=== PATIENT | female | born 1970 | race American Indian/Alaskan Native ===

== ENCOUNTER 2017-09-07 06:00 | Day surgery (SDC) | payer BC ==
[2017-09-07] MEDS ORDERED: WATER FOR IRRIG STERILE IR ONE (07:22)
--- NOTE | 2017-09-07 07:26 | Anesthesia Consultation ---
Anesthesia Consult and Med Hx Date of service: 09/07/17 - Airway Anesthetic Teeth Evaluation: Good ROM Head & Neck: Adequate Mental/Hyoid Distance: Adequate Mallampati Class: Class I Intubation Access Assessment: Good - Pulmonary Exam CTA: Yes - Cardiac Exam Cardiac Exam: RRR - Pre-Operative Health Status ASA Pre-Surgery Classification: ASA3 Proposed Anesthetic Plan: MAC - Pulmonary Hx Sleep Apnea: Yes (mild, had sleep study done) - Cardiovascular System Hx Hypertension: Yes - Gastrointestinal Hx Gastroesophageal Reflux Disease: Yes (when indulges) - Other Systems Hx Obesity: Yes
--- NOTE | 2017-09-07 07:26 | Anesthesia Day of Surgery ---
Anesthesia Day of Surgery - Day of Surgery Patient Examined: Yes Patient H&P Reviewed: Yes Patient is NPO: Yes
[2017-09-07] MEDS ORDERED: DIPRIVAN 10 MG/ML IV ONE ×2 (07:33)
[2017-09-07] MEDS ORDERED: NACL 0.9% 1000 ML 1,000 ML ONE (07:37)
--- NOTE | 2017-09-07 07:54 | Discharge Summary ---
Providers - Providers Attending physician: DANIEL CAMARILLO Primary care physician: CHRISTINE ZELAYA Hospitalization Hospital course: 47 y.o. F presented for EGD for upcoming bariatric surgery. She tolerated the procedure well. Disposition: - TO HOME OR SELFCARE Core Measure Documentation - Palliative Care Palliative Care/ Comfort Measures: Not Applicable - Core Measures Any of the following diagnoses?: none Exam - Physical Exam Narrative exam: no change from prior - Constitutional Vitals: Temp Pulse Resp BP Pulse Ox 97.5 F L 85 18 138/71 100 09/07/17 07:29 09/07/17 07:29 09/07/17 07:29 09/07/17 07:29 09/07/17 07:29 Plan Diet: other (high protein then clears 2 day prior to surgery) Follow up with: CHRISTINE ZELAYA MD [Primary Care Provider] - 7 Days
--- NOTE | 2017-09-07 07:58 | Operative Report ---
Operative Report Operative Report: DATE 09/07/17 SURGERY: Upper endoscopy. SURGEON: Juan Chopra M.D. [employer] ADVISOR: Fariha Nicolas PRE OP DX: morbid obesity POST OP DX: Large hiatal hernia TYPE OF ANESTHESIA: MAC. ESTIMATED BLOOD LOSS: None. COMPLICATIONS: None. SPECIMENS REMOVED: None. FINDINGS: 1. moderate to large hiatal hernia INDICATIONS:INDICATION FOR PROCEDURE: Patient is a 47-year-old female with a long history of morbid obesity. She is here today for egd for evaluation of her stomach prior to sleeve gastrectomy. PROCEDURE DETAILS: After consent was reviewed, patient was taken back to the operating room where patient was placed in the left lateral decubitus position and a bite block was placed in the mouth. After a time-out was called, MAC anesthesia was initiated. I then passed the endoscope into her oropharynx, into her esophagus, visualized the entire esophagus, which was all within normal limits. I then visualized the stomach and the first portion of the duodenum and there were no abnormalities I could clearly visualize. I then retroflexed the scope in the stomach and visualized the hiatus and I could see a moderate to large hiatal hernia. I then desufflated the stomach and removed the endoscope. Patient tolerated procedure well and was transferred to recovery room in good and stable condition.
[2017-09-07 08:26] VITALS: BP 138/85
--- NOTE | 2017-09-07 08:30 | Post Anesthesia Evaluation ---
- Post Anesthesia Evaluation Patient Participated: Yes Airway Patent: Yes Stable Respiratory Function: Yes Nausea/Vomiting: No Temp > 96.8F: Yes Pain Manageable: Yes Adequeate Hydration: Yes Anesthesia Complications: No Block Receding Appropriately: Not Applicable Patient on Ventilator: No
== END 2017-09-07 06:01 | disposition home or self-care (01) ==
LOC: GIO 06:00
PROVIDERS: ATTEND Surgery
DX: K44.9 Diaphragmatic hernia without obstruction or gangrene (principal); K21.9 Gastro-esophageal reflux disease without esophagitis; E66.01 Morbid (severe) obesity due to excess calories; E78.00 Pure hypercholesterolemia, unspecified; I10 Essential (primary) hypertension; G47.33 Obstructive sleep apnea (adult) (pediatric); Z98.51 Tubal ligation status; Z98.890 Other specified postprocedural states; Z79.899 Other long term (current) drug therapy; Z68.42 Body mass index [BMI] 45.0-49.9, adult
CPT/HCPCS: 43235; 81025; J2704; J7030

== ENCOUNTER 2017-09-10 06:52 | Inpatient (IN) | payer BC ==
[2017-09-10] MEDS ORDERED: MYLICON PO PRN (07:52)
[2017-09-10] MEDS ORDERED: ANCEF/NS 1 GM/50 ML 1 GM/50 ML BAG IV SCH (08:00)
[2017-09-10] MEDS ORDERED: ANCEF/STERILE WATER 2 GM/20 ML 2 GM/20 ML SYRINGE IV NR (08:00)
[2017-09-10] MEDS ORDERED: FLAGYL 500 MG/100 ML 500 MG/100 ML BAG IV NR (08:00)
[2017-09-10] MEDS ORDERED: LOVENOX SUB-Q NR (08:00)
[2017-09-10] MEDS ORDERED: MORPHINE IV PRN ×2 (08:30→10:13)
[2017-09-10] MEDS ORDERED: ZOFRAN IV PRN (08:30)
[2017-09-10] MEDS ORDERED: APRESOLINE IV PRN (08:30)
[2017-09-10] MEDS ORDERED: TRANSDERM-SCOP TD SCH (08:30)
[2017-09-10] MEDS ORDERED: NORCO PO PRN (08:30)
[2017-09-10] MEDS ORDERED: DILAUDID IV PRN (08:30)
--- NOTE | 2017-09-10 08:41 | Anesthesia Consultation ---
Anesthesia Consult and Med Hx Date of service: 09/10/17 - Airway Anesthetic Teeth Evaluation: Good ROM Head & Neck: Adequate Mental/Hyoid Distance: Adequate Mallampati Class: Class II Intubation Access Assessment: Probably Good - Pulmonary Exam CTA: Yes - Cardiac Exam Cardiac Exam: RRR - Pre-Operative Health Status ASA Pre-Surgery Classification: ASA3 Proposed Anesthetic Plan: General - Pulmonary Hx Sleep Apnea: Yes (Mild) - Cardiovascular System Hx Hypertension: Yes (dx in her 20's) - Central Nervous System Hx Psychiatric Problems: No - Gastrointestinal Hx Gastroesophageal Reflux Disease: Yes (when indulges) - Endocrine Hx Non-Insulin Dependent Diabetes: Yes (pre diabetic, no meds) - Other Systems Hx Alcohol Use: No Hx Substance Use: No Hx Cancer: No Hx Obesity: Yes
--- NOTE | 2017-09-10 08:42 | Anesthesia Day of Surgery ---
Anesthesia Day of Surgery - Day of Surgery Patient Examined: Yes Patient H&P Reviewed: Yes Patient is NPO: Yes
[2017-09-10] MEDS ORDERED: REGLAN IV PRN (09:00)
[2017-09-10] MEDS ORDERED: PEPCID IV NR (09:32)
[2017-09-10] MEDS: LACTATED RINGERS 1,000 ML IV SCH ×2 (09:40→19:35)
[2017-09-10 09:52] LABS: Bilirubin,Urine NEG (Negative); Blood,Urine NEG (Negative); Ketones,Urine TR mg/dL (Negative); Leukocyte Esterase,Urine NEG (Negative); Mucus,Urine FEW /HPF; Nitrite,Urine NEG (Negative); Protein,Urine <15 mg/dL mg/dL (Negative); RBC,Urine < 1.0 /HPF (0.0-6.0); Urobilinogen,Urine < 2.0 mg/dL (<2.0)
[2017-09-10] MEDS ORDERED: VERSED IV NR (10:00)
[2017-09-10] MEDS ORDERED: NON-FORMULARY (Metoprolol 50 MG) PO SCH (10:00)
[2017-09-10] MEDS ORDERED: ATORVASTATIN PO SCH (10:00)
[2017-09-10 10:02] LABS: Basophils % (Auto) 0.4 % (0.0-1.8); Hematocrit 40.5 % (30.3-42.9); Hemoglobin 13.6 gm/dl (10.1-14.3); Mean Corpuscular HGB Conc 34 % (30-34); Mean Corpuscular Hemoglobin 31 pg (28-32); Mean Corpuscular Volume 92 fl (79-97); Platelet Count 285 K/mm3 (140-440); Red Blood Count 4.41 M/mm3 (3.65-5.03); Red Cell Distribution Width 14.3 % (13.2-15.2); White Blood Count 6.4 K/mm3 (4.5-11.0)
[2017-09-10] MEDS ORDERED: DIPRIVAN 10 MG/ML IV ONE (10:12)
[2017-09-10 10:14] LABS: Anion Gap 19 mmol/L; BUN/Creatinine Ratio 13; Blood Urea Nitrogen 8 mg/dL (7-17); Calcium 9.5 mg/dL (8.4-10.2); Carbon Dioxide 26 mmol/L (22-30); Chloride 100.8 mmol/L (98-107); Glucose 104 mg/dL (65-100); Potassium 3.8 mmol/L (3.6-5.0); Sodium 142 mmol/L (137-145)
[2017-09-10] MEDS ORDERED: SUBLIMAZE ONE (10:34)
[2017-09-10] MEDS ORDERED: QUELICIN ONE (10:36)
[2017-09-10] MEDS ORDERED: ZEMURON IV ONE (10:36)
[2017-09-10] MEDS ORDERED: XYLOCAINE MPF 2% ONE (10:37)
[2017-09-10] MEDS ORDERED: MARCAINE 0.5% 30 ML INFILTRATI ONE (10:42)
[2017-09-10] MEDS ORDERED: ADRENALIN ONE (10:42)
[2017-09-10] MEDS ORDERED: XYLOCAINE 1% 20 mL ONE (10:42)
[2017-09-10] MEDS ORDERED: ePHEDrine SULFATE ONE (11:36)
[2017-09-10] MEDS ORDERED: XYLOCAINE 1% 20 mL INFILTRATI ONE (11:54)
[2017-09-10] MEDS ORDERED: NACL 0.9% IR ONE (11:55)
[2017-09-10] MEDS ORDERED: MARCAINE 0.5% INFILTRATI ONE (11:55)
[2017-09-10] MEDS ORDERED: ADRENALIN IV ONE (11:56)
[2017-09-10] MEDS ORDERED: NEO SYNEPHRINE/NS Syringe(OR USE) IV ONE (12:09)
[2017-09-10] MEDS ORDERED: LACTATED RINGERS 1,000 ML ONE (12:21)
[2017-09-10] MEDS ORDERED: ROBINUL ONE (12:33)
[2017-09-10] MEDS ORDERED: DILAUDID ONE (12:42)
[2017-09-10] MEDS: LOVENOX SUB-Q SCH (13:00)
[2017-09-10] MEDS ORDERED: NEOSTIGMINE ONE (13:04)
--- NOTE | 2017-09-10 13:09 | Operative Report ---
Operative Report Operative Report: Operative Report DATE OF PROCEDURE: 09/10/17 PREOPERATIVE DIAGNOSES: Morbid obesity, hiatal hernia POSTOPERATIVE DIAGNOSES: 1.same as pre-op SURGEON: Juan Chopra M.D. RN ACCESS: Alexandru Levy CSA PROCEDURE: 1. laparoscopic sleeve gastrectomy 2. laparoscopic hiatal hernia repair ANESTHESIA: General. ESTIMATED BLOOD LOSS: <5 mL. COMPLICATIONS: None. SPECIMEN: Partial gastrectomy. FINDINGS: 1. hiatal hernia INDICATION FOR PROCEDURE: Patient is a 47-year-old female with a long history of morbid obesity. She has tried multiple efforts at weight loss without exterminator success. She is here today for sleeve gastrectomy. PROCEDURE IN DETAIL: After consent was reviewed, patient was taken back to the operating room, where patient was placed supine on the bed with both arms out. The patient's legs were doubly strapped to the bed. Patient had a foot board in place. Patient had a body warmer placed by anesthesia. Patient was then prepped and draped in normal sterile surgical fashion. After a time-out was called, I made a stab incision in the left subcostal region and placed a Veress needle through this incision and insufflated the abdomen to 18 mmHg pressure. I then counted down a handsbreadth below the xiphoid process in the midline and slightly left lateral injected local anesthetic and made about 0.5 cm transverse incision. I then used a 5-mm Optiview trocar to enter into the abdomen. I then placed a 45-degree scope through this port and inspected the abdomen. There was no injury on entry of the abdomen. I then placed 5-mm ports in the right upper quadrant, left upper quadrant, and 1 subxiphoid below the costovertebral angle. I then placed a 15-mm port about a handsbreadth left lateral and inferior to my right upper quadrant port. I then placed the liver retractor through the subxiphoid port and placed the patient in full reverse Trendelenburg. The right and left crura were skeletonized accentuating a small hiatal hernia. An anterior cruraplasty was perfromed with a figure-of-8 stitch using surgidac suture to reapproximate the crura.The GE junction was noted to be above the level of the diaphragmatic hiatus, and after full dissection the stomach and 2cm of distal esophagus were resting comfortable in the abdominal cavity without tension. I then identified the pylorus and then counted off 6cm from the pylorus. I then used a LigaSure cutting device to enter into the lesser sac. At that point and then I took down the short gastrics all the way up to the left scooby. Then I had anesthesia pass down a 36-Chinese bougie along the lesser curvature of the stomach. I made sure everything else was out of the abdomen except the bougie. I then created my gastric sleeve using a 60-mm laparoscopic stapler. Green, then gold, followed by blue loads. The sleeve looked good without any twisting or torsion. I then had anesthesia to remove the bougie. Hemostasis was obtained along the staple line. I then used Tiseel along the entirety of the staple line and some on the liver. I then removed liver grasper and took it off the field. I then removed the stomach through the 15-mm port. I then closed that fascia with a #1 PDS in a [id number] fashion using a Bryan-Annia. I then desufflated the abdomen and then removed all port sites. I then closed the incisions with 4-0 Monocryl in subcuticular fashion. I dressed the wounds with Dermabond. Patient tolerated the procedure well and was transferred to recovery room in good and stable condition.
--- NOTE | 2017-09-10 14:07 | Post Anesthesia Evaluation ---
- Post Anesthesia Evaluation Patient Participated: Yes Airway Patent: Yes Stable Respiratory Function: Yes Temp > 96.8F: Yes Pain Manageable: Yes Adequeate Hydration: Yes Anesthesia Complications: No
[2017-09-10] MEDS: FLAGYL 500 MG/100 ML 500 MG/100 ML BAG IV SCH ×2 (15:06→23:03)
[2017-09-10] MEDS: TORADOL IV SCH ×2 (18:28→22:46)
[2017-09-10] MEDS: ceFAZolin 1 GM in NACL 0.9% 20 ML IV SCH (19:34)
[2017-09-10] MEDS: LOPRESSOR PO SCH (23:10)
[2017-09-11] MEDS: TORADOL IV SCH ×3 (01:44→10:16)
[2017-09-11] MEDS: ceFAZolin 1 GM in NACL 0.9% 20 ML IV SCH (01:45)
[2017-09-11 02:08] LABS: Alanine Aminotransferase 75 units/L (7-56); Albumin 4.1 g/dL (3.9-5); Albumin/Globulin Ratio 1.6 %; Alkaline Phosphatase 41 units/L (35-129); BUN/Creatinine Ratio 12; Basophils % (Auto) 0.3 % (0.0-1.8); Blood Urea Nitrogen 6 mg/dL (7-17); Carbon Dioxide 26 mmol/L (22-30); Eosinophils % (Auto) 0.1 % (0.0-4.3); Glucose 112 mg/dL (65-100); Hematocrit 35.6 % (30.3-42.9); Hemoglobin 12.2 gm/dl (10.1-14.3); Mean Corpuscular HGB Conc 34 % (30-34); Mean Corpuscular Hemoglobin 32 pg (28-32); Mean Corpuscular Volume 93 fl (79-97); Platelet Count 258 K/mm3 (140-440); Red Blood Count 3.84 M/mm3 (3.65-5.03); Total Protein 6.6 g/dL (6.3-8.2); White Blood Count 10.2 K/mm3 (4.5-11.0)
[2017-09-11 02:09] LABS: Anion Gap 18 mmol/L; Chloride 99.6 mmol/L (98-107); Potassium 3.8 mmol/L (3.6-5.0); Sodium 140 mmol/L (137-145)
[2017-09-11] MEDS: LACTATED RINGERS 1,000 ML IV SCH (04:11)
[2017-09-11] MEDS: FLAGYL 500 MG/100 ML 500 MG/100 ML BAG IV SCH (06:00)
[2017-09-11] MEDS: LOPRESSOR PO SCH (10:03)
[2017-09-11] MEDS: ZESTRIL PO SCH ×2 (10:03)
[2017-09-11] MEDS: NORVASC PO SCH ×2 (10:03)
[2017-09-11] MEDS: LOVENOX SUB-Q SCH (10:04)
[2017-09-11 16:26] VITALS: BP 135/81
--- NOTE | 2017-09-11 16:32 | Discharge Summary ---
Providers - Providers Date of Admission: 09/10/17 06:52 Attending physician: DANIEL CAMARILLO Primary care physician: CHRISTINE ZELAYA Hospitalization Reason for admission: Surgery Condition: Good Procedures: S/P laparoscopic gastric sleeve. Hospital course: Patient underwent laparoscopic gastric sleeve with no complications. Was monitored overnight with no complaints. POD 1 she tolerated diet and her pain was controlled. She denies vomiting. She had some nausea but controlled with medication. She was discharged no pOD 1 w/o issues. Disposition: DC-01 TO HOME OR SELFCARE Core Measure Documentation - Palliative Care Palliative Care/ Comfort Measures: Not Applicable - Core Measures Any of the following diagnoses?: none Exam - Constitutional Vitals: Temp Pulse Resp BP Pulse Ox 98.6 F 87 18 135/81 95 09/11/17 16:21 09/11/17 16:21 09/11/17 16:21 09/11/17 16:21 09/11/17 16:21 General appearance: Present: no acute distress, well-nourished - Respiratory Respiratory effort: normal - Abdominal General gastrointestinal: Present: soft, tender (tender to palpation over trochar site in RLQ), non-distended, other (incision sites cdi. no reboudn no guarding ). Absent: mass, hernia Female genitourinary: Present: deferred - Rectal Rectal Exam: deferred - Integumentary Integumentary: Present: clear, warm, dry - Psychiatric Psychiatric: appropriate mood/affect, intact judgment & insight, memory intact, cooperative - Additional findings Additional findings: Incision sites were clean, dry and intact. Plan Activity: other (Can begin walking. No lifting more than 5 lbs for 6 weeks. No abdominal exercise for 6 weeks.) Diet: other (follow surgery packet recommendations. ) Wound: per your surgeon's advice Special Instructions: no heavy lifting Additional Instructions: Follow-up for wound check in office. Follow up with: CHRISTINE ZELAYA MD [Primary Care Provider] - 7 Days
== END 2017-09-11 19:49 | disposition home or self-care (01) | DRG 327 ==
LOC: 3A 06:52 → 3B-SURG 14:14
PROVIDERS: ADMIT Surgery; ATTEND Surgery
PROC: 0BQT4ZZ Repair Diaphragm, Percutaneous Endoscopic Approach (ICD-10-PCS; principal; 2017-09-10)
PROC: 0DB64Z3 Excision of Stomach, Percutaneous Endoscopic Approach, Vertical (ICD-10-PCS; 2017-09-10)
DX: K44.9 Diaphragmatic hernia without obstruction or gangrene (principal); Z68.42 Body mass index [BMI] 45.0-49.9, adult; E66.01 Morbid (severe) obesity due to excess calories; Z71.3 Dietary counseling and surveillance; I10 Essential (primary) hypertension; K21.9 Gastro-esophageal reflux disease without esophagitis
CPT/HCPCS: 36415; 80048; 80053; 81001; 81025; 85025; 88307; C9250; J0171; J0330; J0690; J1170; J1650; J1885; J2250; J2270; J2370; J2405; J2704; J2710; J2765; J3010; J7120